=== PATIENT | male | born 1950 | race Caucasian/White ===

== ENCOUNTER 2019-01-04 11:13 | Day surgery (SDC) | payer MEDICARE ==
[2019-01-04 11:57] LABS: ADD MAN DIFF? NO
[2019-01-04 11:59] LABS: WHITE BLOOD COUNT 7.3 10^3/ul (4.8-10.8)
[2019-01-04 11:59] LABS: BASOPHIL # 0.1 10^3/ul (0.0-0.1); BASOPHILS % 0.8 % (0.0-2.0); EOSINOPHILS # 0.3 10^3/ul (0.0-0.5); EOSINOPHILS % 3.6 % (0.0-7.0); HEMATOCRIT 37.8 % (42.0-52.0); HEMOGLOBIN 13.3 g/dl (14.0-18.0); LYMPHOCYTES # 1.1 10^3/ul (0.8-2.9); LYMPHOCYTES % 15.7 % (15.0-51.0); MEAN CORPUSCULAR HEMOGLOBIN 29.4 pg (29.0-33.0); MEAN CORPUSCULAR HGB CONC 35.2 g/dl (32.0-37.0); MEAN CORPUSCULAR VOLUME 83.6 fl (82.0-101.0); MEAN PLATELET VOLUME 10.4 fl (7.4-10.4); MONOCYTE # 0.7 10^3/ul (0.3-0.9); MONOCYTES % 9.5 % (0.0-11.0); NEUTROPHIL # 5.1 10^3/ul (1.6-7.5); PLATELET COUNT 196 10^3/UL (140-415); RED BLOOD COUNT 4.52 10^6/ul (4.70-6.10); RED CELL DISTRIBUTION WIDTH 14.1 % (11.5-14.5)
[2019-01-04 12:19] LABS: ANION GAP 10 (5-13); BLOOD UREA NITROGEN 13 mg/dl (7-20); CARBON DIOXIDE 26 mmol/L (21-31); CHLORIDE 104 mmol/L (97-110); CREATININE 1.01 mg/dl (0.61-1.24); Estimated GFR > 60 mL/min (>60); GLUCOSE 106 mg/dl (70-220); INR 1.06; POTASSIUM 3.6 mmol/L (3.5-5.1); PROTIME 13.9 Sec (11.9-14.9); PT RATIO 1.1; SODIUM 140 mmol/L (135-144)
[2019-01-04 12:20] LABS: ALANINE AMINOTRANSFERASE 29 IU/L (13-69); ALBUMIN 4.4 g/dl (3.3-4.9); ALBUMIN/GLOBULIN RATIO 1.51; ALKALINE PHOSPHATASE 123 IU/L (42-121); ASPARTATE AMINO TRANSFERASE 28 IU/L (15-46); BILIRUBIN,INDIRECT 0.9 mg/dl (0-1.1); BILIRUBIN,TOTAL 0.9 mg/dl (0.2-1.3); CALCIUM 9.7 mg/dl (8.4-10.2); PARTIAL THROMBOPLASTIN TIME 27.3 Sec (23.0-35.0); TOTAL PROTEIN 7.3 g/dl (6.1-8.1)
[2019-01-04] MEDS ORDERED: SOD CHLORIDE 0.9% 1,000 ML IV (12:39)
[2019-01-04] MEDS ORDERED: LIDOCAINE 1% (MDV) 20 ML INJ (12:40)
[2019-01-04] MEDS ORDERED: MIDAZOLAM 1 MG/ML 2 ML INJ (12:40)
[2019-01-04] MEDS ORDERED: HEPARIN 1000 UNITS/ML 10 ML INJ (12:40)
[2019-01-04] MEDS ORDERED: VERAPAMIL 5 MG INJ (12:40)
[2019-01-04] MEDS ORDERED: NITROGLYCERIN (IC) 100 MCG/ML INJ (12:40)
[2019-01-04] MEDS ORDERED: FENTAnyl 50 MCG/ML VIAL (12:40)
[2019-01-04] MEDS ORDERED: ACETAMINOPHEN 325 MG TAB PO (13:00)
[2019-01-04] MEDS ORDERED: AL HYDROX/MG HYDROX/SIMETH 30 ML CUP PO (13:00)
[2019-01-04] MEDS ORDERED: hydrALAzine 20 MG INJ (13:49)
[2019-01-04] MEDS ORDERED: NITROGLYCERIN 50 MG/D5W (PMX) 0 ML (14:18)
[2019-01-04] MEDS ORDERED: NITROGLYCERIN AEROSOL (4.9 GM) (14:19)
[2019-01-04] MEDS ORDERED: IOHEXOL 350MG/ML 50 ML BTL (14:30)
[2019-01-04] MEDS ORDERED: IODIXANOL LOCM 100 ML BTL (14:30)
== END 2019-01-04 20:01 | disposition home or self-care (01) ==
LOC: SDS 11:13
DX: I20.9 Angina pectoris, unspecified (principal); R07.2 Precordial pain; E78.5 Hyperlipidemia, unspecified; I10 Essential (primary) hypertension
CPT/HCPCS: 80053; 85025; 85610; 85730; 93458